=== PATIENT | male | born 1995 | race Two or more races ===

== ENCOUNTER 2021-02-21 15:33 | Emergency (ER) | payer OTHER ==
[~2021-02-21] VITALS: Ht 167.6 cm; Wt 72.6 kg
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
[2021-02-21] MEDS ORDERED: IBUPROFEN 600 MG TABLET PO ONE (16:00)
[2021-02-21] MEDS ORDERED: IBUP-1955 PO (16:04)
[2021-02-21] MEDS ORDERED: IBUPROFEN 600 MG TABLET ONE (16:37)
[2021-02-21 18:20] VITALS: BP 124/75
== END 2021-02-21 18:20 | disposition home or self-care (01) ==
LOC: ER 15:39
DX: S01.81XA Laceration without foreign body of other part of head, initial encounter (principal); W22.8XXA Striking against or struck by other objects, initial encounter; Y93.89 Activity, other specified; Y92.89 Other specified places as the place of occurrence of the external cause; Y99.0 Civilian activity done for income or pay